=== PATIENT | female | born 1935 | race Caucasian/White ===

== ENCOUNTER → 2016-05-09 | Outpatient (CLI) | payer MEDICARE, OTHER ==
[2016-05-09 13:48] LABS: ARTERIAL BLOOD BASE EXCESS 9.3 mmol/L; ARTERIAL BLOOD O2 SATURATION 94.2 % (94-98)
== END ==
LOC: OD 13:08
PROVIDERS: ATTEND Physician Assistant Medical
DX: J44.9 Chronic obstructive pulmonary disease, unspecified (principal); I50.9 Heart failure, unspecified
CPT/HCPCS: 36600; 82803

== ENCOUNTER 2017-09-06 13:17 | Inpatient (IN) | payer MEDICARE, OTHER ==
[2017-09-06] MEDS ORDERED: CEFTRIAXONE 1 GM/D5W RTU 1 GM/50 ML RTUPB IV ONE (13:53)
[2017-09-06] MEDS ORDERED: IPRATROPIUM/ALBUTEROL 0.5-2.5 MG/3 ML AMPUL NEB ONE (13:53)
--- NOTE | 2017-09-06 14:00 | ER Document Report ---
ED Medical Screen (RME) - General Chief Complaint: Breathing Difficulty Stated Complaint: FEVER Time Seen by Provider: 09/06/17 13:45 Mode of Arrival: Ambulatory Information source: Patient Notes: 82-year-old female history of COPD presents with complaints of productive cough shortness breath fever that started this morning. Patient on oxygen only at nighttime I have greeted and performed a rapid initial assessment of this patient. A comprehensive ED assessment and evaluation of the patient, analysis of test results and completion of the medical decision making process will be conducted by additional ED providers. PHYSICAL EXAMINATION: GENERAL: shortness of breath HEAD: Atraumatic, normocephalic. EYES: Pupils equal round extraocular movements intact, conjunctiva are normal. ENT: Nares patent NECK: Normal range of motion LUNGS: coarse rhonchi Musculoskeletal: Normal range of motion NEUROLOGICAL: Normal speech, normal gait. PSYCH: Normal mood, normal affect. SKIN: Warm, Dry, normal turgor, no rashes or lesions noted. TRAVEL OUTSIDE OF THE [place] IN LAST 30 DAYS: No - Related Data Allergies/Adverse Reactions: codeine Adverse Reaction (Verified 09/06/17 13:19) n/v Past Medical History - Social History Chew tobacco use (# tins/day): No Frequency of alcohol use: Rare Drug Abuse: None Pulmonary Medical History: Reports: Hx COPD Neurological Medical History: Denies: Hx Seizures Renal/ Medical History: Denies: Hx Peritoneal Dialysis GI Medical History: Denies: Hx Cirrhosis, Hx Hepatitis Infectious Medical History: Denies: Hx Hepatitis Past Surgical History: Reports: Other - Bilateral Laser eye surgery Physical Exam - Vital signs Vitals: Temp Pulse Resp BP Pulse Ox 98.5 F 107 H 16 113/88 H 83 L 09/06/17 13:35 09/06/17 13:35 09/06/17 13:35 09/06/17 13:35 09/06/17 13:35 Course - Vital Signs Vital signs: Temp Pulse Resp BP Pulse Ox 98.5 F 107 H 16 113/88 H 83 L 09/06/17 13:35 09/06/17 13:35 09/06/17 13:35 09/06/17 13:35 09/06/17 13:35
--- NOTE | 2017-09-06 14:06 | ER Document Report ---
ED Respiratory Problem - General Chief Complaint: Breathing Difficulty Stated Complaint: FEVER Time Seen by Provider: 09/06/17 13:45 Mode of Arrival: Ambulatory Notes: The patient is an 82-year-old female, past medical history COPD (on home nighttime O2), presents with increasing shortness of breath, productive cough and fever up to 101. She had a family member was diagnosed with walking pneumonia. Her oxygen on arrival to the ER is 83% and she does not usually wear oxygen during the day. She denies chest pain, leg swelling, hemoptysis, nausea, vomiting, back pain or recent travel. TRAVEL OUTSIDE OF THE [place] IN LAST 30 DAYS: No - Related Data Allergies/Adverse Reactions: codeine Adverse Reaction (Verified 09/06/17 13:19) n/v Past Medical History - General Information source: Patient - Social History Smoking Status: Former Smoker Chew tobacco use (# tins/day): No Frequency of alcohol use: Rare Drug Abuse: None Family History: Reviewed & Not Pertinent Patient has suicidal ideation: No Patient has homicidal ideation: No Pulmonary Medical History: Reports: Hx COPD Neurological Medical History: Denies: Hx Seizures Renal/ Medical History: Denies: Hx Peritoneal Dialysis GI Medical History: Denies: Hx Cirrhosis, Hx Hepatitis Infectious Medical History: Denies: Hx Hepatitis Past Surgical History: Reports: Other - Bilateral Laser eye surgery Review of Systems - Review of Systems Notes: REVIEW OF SYSTEMS: CONSTITUTIONAL: +fevers, -chills EENT: -eye pain, -difficulty swallowing, -nasal congestion CARDIOVASCULAR: -chest pain, -syncope. RESPIRATORY: +cough, +SOB GASTROINTESTINAL: -abdominal pain, -nausea, -vomiting, -diarrhea GENITOURINARY: -dysuria, -hematuria MUSCULOSKELETAL: -back pain, -neck pain SKIN: -rash or skin lesions. HEMATOLOGIC: -easy bruising or bleeding. LYMPHATIC: -swollen, enlarged glands. NEUROLOGICAL: -altered mental status or loss of consciousness, -headache, - neurologic symptoms PSYCHIATRIC: -anxiety, -depression. ALL OTHER SYSTEMS REVIEWED AND NEGATIVE. Physical Exam - Vital signs Vitals: Temp Pulse Resp BP Pulse Ox 98.5 F 107 H 16 113/88 H 83 L 09/06/17 13:35 09/06/17 13:35 09/06/17 13:35 09/06/17 13:35 09/06/17 13:35 - Notes Notes: PHYSICAL EXAMINATION: GENERAL: No acute respiratory distress. HEAD: Atraumatic, normocephalic. EYES: Pupils equal round and reactive to light, extraocular movements intact, sclera anicteric, conjunctiva are normal. ENT: nares patent, oropharynx clear without exudates. Moist mucous membranes. NECK: Normal range of motion, supple without lymphadenopathy LUNGS: Diffuse wheezing, crackles in left lower lung. HEART: Regular rate and rhythm without murmurs ABDOMEN: Soft, nontender, normoactive bowel sounds. No guarding, no rebound. No masses appreciated. EXTREMITIES: Normal range of motion, no pitting or edema. No cyanosis. NEUROLOGICAL: Cranial nerves grossly intact. Normal speech, normal gait. Normal sensory and motor exams. PSYCH: Normal mood, normal affect. SKIN: Warm, Dry, normal turgor, no rashes or lesions noted. Course - Re-evaluation Re-evalutation: Patient with fever at home to 101, leukocytosis, productive cough, hypoxia to 83 % on room air and crackles in left lower lungs. Pt's oxygenation improves to 97 % on 3L nasal cannula. Radiology read chest x-ray as no acute processes, but clinically, she has a LLL pneumonia. Pt also with sepsis with a leukocytosis, tachycardia and fever. Will treat her for CAP. Pt also has hypokalemia and this was repleted in the emergency room. Patient with elevated LFTs, but she has no right upper quadrant tenderness or pain. US does not reveal any acute abnormalities. Her PMD is in [place]. Spoke to patient and said that patient should be admitted due to her age, comorbidities shortness of breath. 09/06/17 16:[address] Carter (Hospitalist) and he has accepted the patient as Inpatient to [facility]. - Vital Signs Vital signs: Temp Pulse Resp BP Pulse Ox 98.5 F 107 H 16 113/88 H 83 L 09/06/17 13:35 09/06/17 13:35 09/06/17 13:35 09/06/17 13:35 09/06/17 13:35 - Laboratory Result Diagrams: 09/06/17 14:15 09/06/17 14:15 Laboratory results interpreted by me: 09/06/17 09/06/17 14:15 14:15 WBC 15.3 H Seg Neutrophils % 80.7 H Lymphocytes % 8.9 L Absolute Neutrophils 12.3 H Potassium 3.1 L Carbon Dioxide 31 H Est GFR (Non-Af Amer) 58 L Total Bilirubin 1.5 H Direct Bilirubin 0.7 H AST 168 H ALT 104 H Alkaline Phosphatase 141 H - Diagnostic Test Radiology reviewed: Image reviewed, Reports reviewed Radiology results interpreted by me: CXR: NAD, chronic lung changes - EKG Interpretation by Me EKG shows normal: Sinus rhythm, [place], Intervals, QRS Complexes, ST-T Waves Rate: Normal When compared to previous EKG there are: No significant change Discharge - Discharge Clinical Impression: Hypoxia, Hypokalemia, Elevated LFTs Pneumonia Qualifiers: Pneumonia type: due to unspecified organism Laterality: left Lung location: lower lobe of lung Qualified Code(s): J18.1 - Lobar pneumonia, unspecified organism Sepsis Qualifiers: Sepsis type: sepsis due to unspecified organism Qualified Code(s): A41.9 - Sepsis, unspecified organism Condition: Stable Disposition: ADMITTED INPATIENT Admitting Provider: [place] Hospitalist [facility] Unit Admitted: Telemetry
[2017-09-06 14:28] LABS: ABSOLUTE BASOPHILS # (AUTO) 0.1 10^3/uL (0.0-0.2); ABSOLUTE EOSINOPHILS # (AUTO) 0.1 10^3/uL (0.0-0.6); ABSOLUTE LYMPHOCYTES (AUTO) 1.4 10^3/uL (0.5-4.7); ABSOLUTE MONOCYTES (AUTO) 1.4 10^3/uL (0.1-1.4); ABSOLUTE NEUT (AUTO) 12.3 10^3/uL (1.7-8.2); BASOPHILS % (AUTO) 0.6 % (0-2); EOSINOPHILS % (AUTO) 0.4 % (0-6); HEMOGLOBIN 12.8 g/dL (12.0-15.5); LYMPHOCYTES % (AUTO) 8.9 % (13-45); MEAN CORPUSCULAR HGB CONC 33.7 g/dL (32.0-36.0); MEAN CORPUSCULAR VOLUME 92 fl (80-97); MONOCYTES % (AUTO) 9.4 % (3-13); PLATELET COUNT 417 10^3/uL (150-450); RED BLOOD COUNT 4.13 10^6/uL (3.72-5.28); SEGMENTED NEUTROPHILS % (AUTO) 80.7 % (42-78); TOTAL CELLS COUNTED % (AUTO) 100 %; WHITE BLOOD COUNT 15.3 10^3/uL (4.0-10.5)
[2017-09-06 14:29] LABS: VENOUS BLOOD BASE EXCESS 5.5 mmol/L; VENOUS BLOOD HCO3 31.2 mmol/L (20-32); VENOUS BLOOD PCO2 49.5 mmHg (35-63); VENOUS BLOOD PH 7.42 (7.30-7.42)
[2017-09-06 14:40] LABS: INTERNATIONAL RATION (INR) 1.02; PROTHROMBIN TIME 13.9 SEC (11.4-15.4)
--- NOTE | 2017-09-06 14:42 | RADIOLOGY REPORT (SQ) ---
EXAM DESCRIPTION: CHEST SINGLE VIEW COMPLETED DATE/TIME: 09/06/2017 2:25 pm REASON FOR STUDY: sob, fever, copd COMPARISON: 03/13/2016 EXAM PARAMETERS: NUMBER OF VIEWS: One view. TECHNIQUE: Single frontal radiographic view of the chest acquired. RADIATION DOSE: NA LIMITATIONS: None. FINDINGS: LUNGS AND PLEURA: Hyperexpansion of the lungs. No infiltrate or effusion. No mass. MEDIASTINUM AND HILAR STRUCTURES: No masses. Contour normal. HEART AND VASCULAR STRUCTURES: Heart normal in size. Normal vasculature. BONES: No acute findings. HARDWARE: None in the chest. OTHER: No other significant finding. IMPRESSION: Chronic lung changes with no acute cardiopulmonary disease. TECHNICAL DOCUMENTATION: JOB ID: [id number] [employer]- All Rights Reserved Reading location - IP/workstation name: [email or web address]
[2017-09-06 14:47] LABS: ALANINE AMINOTRANSFERASE 104 U/L (9-52); ALBUMIN 4.2 g/dL (3.5-5.0); ALKALINE PHOSPHATASE 141 U/L (38-126); ANION GAP 11 (5-19); ASPARTATE AMINO TRANSFERASE 168 U/L (14-36); BILIRUBIN,DIRECT 0.7 mg/dL (0.0-0.4); BILIRUBIN,TOTAL 1.5 mg/dL (0.2-1.3); BLOOD UREA NITROGEN 18 mg/dL (7-20); CALCIUM 9.1 mg/dL (8.4-10.2); CARBON DIOXIDE 31 mmol/L (22-30); CHLORIDE 100 mmol/L (98-107); GLUCOSE 106 mg/dL (75-110); POTASSIUM 3.1 mmol/L (3.6-5.0); SODIUM 142.2 mmol/L (137-145); TOTAL PROTEIN 8.2 g/dL (6.3-8.2)
[2017-09-06] MEDS ORDERED: POTASSIUM CHLORIDE 10 MEQ CAPSULE.ER PO ONE (14:50)
[2017-09-06] MEDS ORDERED: AZITHROMYCIN INJ 500 MG VIAL IV ONE (15:02)
--- NOTE | 2017-09-06 16:01 | EKG REPORT ---
SEVERITY:- ABNORMAL ECG - SINUS TACHYCARDIA ATRIAL PREMATURE COMPLEX NONSPECIFIC REPOL ABNORMALITY, DIFFUSE LEADS : Confirmed by: Tala Connors 06-Sep-2017 16:01:27
--- NOTE | 2017-09-06 16:03 | RADIOLOGY REPORT (SQ) ---
EXAM DESCRIPTION: U/S ABDOMEN LIMITED W/O DOP COMPLETED DATE/TIME: 09/06/2017 3:43 pm REASON FOR STUDY: elevated LFTs COMPARISON: None. TECHNIQUE: Dynamic and static grayscale images acquired of the right upper quadrant and recorded on PACS. Additional selected color Doppler and spectral images recorded. LIMITATIONS: Study limited due to acoustical interference from fat or from air in the bowel. FINDINGS: PANCREAS: Obscured. LIVER: No masses. Echotexture normal. LIVER VASCULATURE: Normal directional flow of the main portal vein and hepatic veins. GALLBLADDER: No stones. Normal wall thickness. No pericholecystic fluid. ULTRASOUND-DETECTED CORBIN'S SIGN: Negative. INTRAHEPATIC DUCTS AND COMMON DUCT: CBD and intrahepatic ducts normal caliber. No filling defects. INFERIOR VENA CAVA: Normal flow. AORTA: Poorly visualized. Distal aorta obscured. RIGHT KIDNEY: Normal size. Normal echogenicity. No solid or suspicious masses. No hydronephrosis. No calcifications. PERITONEAL CAVITY AND RIGHT PLEURAL SPACE: No ascites or effusions. OTHER: No other significant finding. IMPRESSION: NORMAL RIGHT UPPER QUADRANT PANCREAS AND ABDOMINAL AORTA OBSCURED BY BOWEL GAS. TECHNICAL DOCUMENTATION: JOB ID: [id number] [employer]- All Rights Reserved Reading location - IP/workstation name: [email or web address]
--- NOTE | 2017-09-06 17:18 | PDOC H&P ---
History of Present Illness Admission Date/PCP: 09/06/17 16:54 Patient complains of: Fever, cough, shortness of breath History of Present Illness: SILVINA SULLIVAN is a 82 year old female is here from [place] visiting family and began to have a nonproductive cough yesterday. She woke up this morning and said she felt like she had a fever and was more short of breath. She has chronic hypoxemic respiratory failure and COPD and says she has been taking all of her medications and just uses oxygen at night. Her granddaughter said she had "walking pneumonia" and thinks she gave it to the patient. She was brought here where she was found to have a leukocytosis and a fever as well as evidence of some transaminitis. Abdominal ultrasound the right upper quadrant was negative for any acute pathology. She was admitted for IV antibiotics and further evaluation. Past Medical History Cardiac Medical History: Reports: Other - Carotid artery stenosis, particularly on the right according to the patient Pulmonary Medical History: Reports: Chronic Obstructive Pulmonary Disease (COPD) Neurological Medical History: Denies: Seizures GI Medical History: Denies: Cirrhosis, Hepatitis Past Surgical History Past Surgical History: Reports: Other - Bilateral Laser eye surgery Social History Information Source: Patient, Relative Lives with: Alone Smoking Status: Former Smoker Frequency of Alcohol Use: Social Drugs: None Past Social History Note: Granddaughter says she sits around watching TV most of the day and is not very active which is why she thinks she does not need to use oxygen during the day Family History Family History: Reviewed & Not Pertinent Parental Family History Reviewed: No - Noncontributory Children Family History Reviewed: No - Noncontributory Sibling(s) Family History Reviewed.: No - Noncontributory Medication/Allergy Home Medications: Mometasone/Formoterol [Dulera 200 Mcg/5 Mcg Inhaler] 2 puff IH BID 03/02/16 Tiotropium [place] [Spiriva Handihaler 18 mcg/dose (30 Dose)] 1 cap IH DAILY Acetaminophen [Tylenol 325 mg Tablet] 650 mg PO Q4HP PRN tablet 03/14/16 Albuterol Sulfate [Ventolin 0.083% Neb 2.5 mg/3 mL Ampul] 2.5 mg NEB RTQ4HP PRN vial.neb 03/14/16 Atorvastatin Calcium [Lipitor 20 mg Tablet] 20 mg PO QHS tablet 03/14/16 Cefpodoxime Proxetil [Vantin 200 mg Tablet] 1 tab PO Q12 #14 tab 03/14/16 Clopidogrel Bisulfate [Plavix 75 mg Tablet] 75 mg PO DAILY tablet 03/14/16 Docusate Sodium [Colace 100 mg Capsule] 100 mg PO BID capsule 03/14/16 Famotidine [Pepcid 20 mg Tablet] 20 mg PO Q12 tablet 03/14/16 Furosemide [Lasix 40 mg Tablet] 40 mg PO DAILY #3 tablet 03/14/16 Ipratropium/Albuterol Sulfate [Duoneb 3 ml Ampul] 3 ml NEB [id number] vial.neb Mag Hydrox/Al Hydrox/Simeth [Maalox Plus Susp 30 Udcup] 30 ml PO Q6HP PRN udc 03/14/16 Magnesium Hydroxide [Milk of Magnesia 30 ml Udcup] 30 ml PO Q48HP PRN udc 03/14 Metoprolol Succinate [Toprol Xl 25 mg Tab.sr] 25 mg PO DAILY tab.sr.24h Nicotine [Nicoderm 21 mg/24 Hr Transderm Patch] 1 each TD DAILYP PRN patch.td24 03/14/16 Polyethylene Glycol 3350 [Miralax Powder 17 gm/Packet] 17 gm PO DAILY powd.pack 03/14/16 Potassium Chloride [Klor-Con 10 Meq Tablet.sa] 20 meq PO DAILY #3 tablet.sa Prednisone [Deltasone 10 mg Tablet] 10 mg PO DAILY #3 tablet 03/14/16 Pyridoxine HCl [Vitamin B-6 Tablet 50 mg] 25 mg PO DAILY tablet 03/14/16 Allergies/Adverse Reactions: codeine Adverse Reaction (Verified 09/06/17 13:19) n/v Review of Systems Review of Systems: 10 point review of systems was conducted with the patient was negative except as noted in the HPI Physical Exam Vital Signs: Temp Pulse Resp BP Pulse Ox 98.5 F 107 H 29 H 112/57 L 96 09/06/17 13:35 09/06/17 13:35 09/06/17 17:00 09/06/17 15:16 09/06/17 17:00 General appearance: PRESENT: no acute distress, cooperative, disheveled, well- developed Head exam: PRESENT: atraumatic, normocephalic Eye exam: PRESENT: conjunctiva pink, EOMI, PERRLA. ABSENT: scleral icterus Ear exam: PRESENT: normal external ear exam Mouth exam: PRESENT: dry mucosa, neck supple Throat exam: ABSENT: post pharyngeal erythema, tonsillar erythema, tonsillar exudate, tonsillogmegaly Neck exam: PRESENT: full ROM. ABSENT: carotid bruit, JVD, lymphadenopathy, tenderness, thyromegaly Respiratory exam: PRESENT: decreased breath sounds, rhonchi - I did not hear anything peripherally, but she sounded like she had some central rhonchi which are most likely bronchial. ABSENT: rales, wheezes Cardiovascular exam: PRESENT: RRR. ABSENT: diastolic murmur, rubs, systolic murmur Pulses: PRESENT: normal carotid pulses, normal radial pulses, normal femoral pulses Vascular exam: PRESENT: normal capillary refill GI/Abdominal exam: PRESENT: normal bowel sounds, soft. ABSENT: distended, guarding, mass, organolmegaly, rebound, tenderness Rectal exam: PRESENT: deferred Extremities exam: PRESENT: full ROM, other - She has evidence of muscle wasting in her legs. ABSENT: calf tenderness, clubbing, pedal edema Neurological exam: PRESENT: alert, awake, oriented to person, oriented to place , oriented to time, CN II-XII grossly intact Psychiatric exam: PRESENT: appropriate affect, normal mood Skin exam: PRESENT: dry, warm - Skin is very dry and flaky, especially on her trunk Results Laboratory Results: Reviewed Impressions: Chest X-Ray 09/06/17 13:53 IMPRESSION: Chronic lung changes with no acute cardiopulmonary disease. Abdomen Ultrasound 09/06/17 14:49 IMPRESSION: NORMAL RIGHT UPPER QUADRANT PANCREAS AND ABDOMINAL AORTA OBSCURED BY BOWEL GAS. Assessment & Plan - Diagnosis (1) Sepsis Qualifiers: Sepsis type: sepsis due to unspecified organism Qualified Code(s): A41.9 - Sepsis, unspecified organism Is this a current diagnosis for this admission?: Yes Plan: IV antibiotics and hemodynamic monitoring. Will transition to oral antibiotics as soon as possible. (2) Community acquired pneumonia Qualifiers: Lung location: unspecified part of lung Is this a current diagnosis for this admission?: Yes Plan: I do not hear anything peripherally but this may be more likely to be a bronchitis. We will treat her with antibiotics just the same. Blood cultures are pending. (3) Chronic hypoxemic respiratory failure Is this a current diagnosis for this admission?: Yes Plan: She is on 4 L at night and she sits around during the day and does not move and so I suspect when she is active or under metabolic stress she gets hypoxemic. She says that she also uses oxygen some during the day. I think from an oxygenation standpoint she is probably at her baseline. We will continue oxygen at night we will give it to her as needed during the day. (4) COPD (chronic obstructive pulmonary disease) Qualifiers: COPD type: unspecified COPD Qualified Code(s): J44.9 - Chronic obstructive pulmonary disease, unspecified Is this a current diagnosis for this admission?: Yes Plan: We will continue her Spiriva and Symbicort - Time Time Spent: 50 to 70 Minutes Medications reviewed and adjusted accordingly: Yes Anticipated discharge: Home
[2017-09-06] MEDS: POTASSI CL 20 MEQ/50 ML RIDER 20 MEQ/50 ML RTUPB IV SCH ×2 (17:38→19:51)
[2017-09-06] MEDS ORDERED: ENOXAPARIN SODIUM INJ 40 MG/0.4 ML DISP.SYRIN SUBCUT ONE (18:30)
[2017-09-06] MEDS: ALBUTEROL SULFATE 0.083% NEB 2.5 MG/3 ML AMPUL NEB SCH (19:43)
[2017-09-06 19:48] LABS: APPEARANCE,URINE SLIGHTLY-CLOUDY; BILIRUBIN,URINE NEGATIVE (NEGATIVE); COLOR,URINE YELLOW; GLUCOSE, URINE NEGATIVE (NEGATIVE); KETONES,URINE NEGATIVE (NEGATIVE); LEUKOCYTE ESTERASE,URINE LARGE (NEGATIVE); NITRITE,URINE NEGATIVE (NEGATIVE); PROTEIN,URINE NEGATIVE (NEGATIVE); URINE SPECIFIC GRAVITY 1.012
[2017-09-06] MEDS: BUDESONIDE/FORMOTEROL 160-4.5 MCG 60 PUFF/6 GM MDI IH SCH (22:29)
[2017-09-06] MEDS: ACETAMINOPHEN 325 MG TABLET PO PRN (22:35)
[2017-09-06] MEDS: GUAIFENESIN 600 MG TABLET.SA PO SCH (22:35)
[2017-09-06] MEDS: FAMOTIDINE 20 MG TABLET PO SCH (22:35)
[2017-09-07] MEDS: ALBUTEROL SULFATE 0.083% NEB 2.5 MG/3 ML AMPUL NEB SCH ×4 (02:12→19:46)
[2017-09-07 06:38] LABS: HEMATOCRIT 34.5 % (36.0-47.0); HEMOGLOBIN 11.5 g/dL (12.0-15.5); MEAN CORPUSCULAR HGB CONC 33.3 g/dL (32.0-36.0); MEAN CORPUSCULAR VOLUME 93 fl (80-97); PLATELET COUNT 356 10^3/uL (150-450); RED BLOOD COUNT 3.71 10^6/uL (3.72-5.28); WHITE BLOOD COUNT 14.1 10^3/uL (4.0-10.5)
[2017-09-07 06:45] LABS: ANION GAP 11 (5-19); BLOOD UREA NITROGEN 16 mg/dL (7-20); CALCIUM 8.6 mg/dL (8.4-10.2); CARBON DIOXIDE 26 mmol/L (22-30); CHLORIDE 106 mmol/L (98-107); GLUCOSE 92 mg/dL (75-110); POTASSIUM 3.8 mmol/L (3.6-5.0); SODIUM 143.1 mmol/L (137-145)
[2017-09-07] MEDS: BUDESONIDE/FORMOTEROL 160-4.5 MCG 60 PUFF/6 GM MDI IH SCH ×2 (09:34→22:10)
[2017-09-07] MEDS: TIOTROPIUM BROMIDE DPI 5 CAP/KIT (18 MCG/CAP) IH SCH (09:35)
[2017-09-07] MEDS: PYRIDOXINE HCL 50 MG TABLET PO SCH (09:35)
[2017-09-07] MEDS: FAMOTIDINE 20 MG TABLET PO SCH ×2 (09:35→22:10)
[2017-09-07] MEDS: GUAIFENESIN 600 MG TABLET.SA PO SCH ×2 (09:35→22:09)
[2017-09-07] MEDS: CLOPIDOGREL BISULFATE 75 MG TABLET PO SCH (09:35)
[2017-09-07] MEDS: METOPROLOL SUCCINATE 25 MG TAB.SR.24H PO SCH (09:36)
[2017-09-07] MEDS: ENOXAPARIN SODIUM INJ 40 MG/0.4 ML DISP.SYRIN SUBCUT SCH (09:37)
[2017-09-07] MEDS ORDERED: CEFTRIAXONE 1 GM/D5W RTU 50 ML IV SCH (10:00)
[2017-09-07] MEDS: ACETAMINOPHEN 325 MG TABLET PO PRN (11:40)
[2017-09-07] MEDS ORDERED: BENZONATATE 100 MG CAPSULE PO PRN (14:04)
[2017-09-07] MEDS: CEFTRIAXONE SODIUM 1,000 MG in DEXTROSE 5%-WATER 50 ML IV SCH (14:40)
[2017-09-07] MEDS: IBUPROFEN 600 MG TABLET PO PRN ×2 (14:41→22:10)
--- NOTE | 2017-09-07 15:18 | PDOC PROGRESS REPORT ---
Subjective Progress Note for:: 09/07/17 Subjective:: She has been afebrile overnight. She was out for a walk in the hallway and feels like she pulled a muscle in her back. She does think her breathing feels a little bit worse today. She does not have any chest pain. Reason For Visit: PNEUMONIA,SEPSIS,CHRONIC HYPOXEMIC RESPIRATORY Physical Exam Vital Signs: Temp Pulse Resp BP Pulse Ox 98.3 F 93 20 110/48 L 94 09/07/17 12:55 09/07/17 14:00 09/07/17 13:19 09/07/17 12:55 09/07/17 13:19 Pulse Oximeter Continuous Start: 09/06/17 16: 59 Freq: RTQ4 Status: Complete Document 09/06/17 19:43 STI (Rec: 09/06/17 21:05 STI [id number]) Pulse Oximetry Assessment Oxygen Saturation (92-100) 96 Oxygen Flow Rate (L/min) 2.0 Oxygen Delivery Method Nasal Cannula Fraction of Inspired Oxygen (FIO2) 28 Equipment Usage Equipment Standby Continuous SpO2 Machine # ED MONITOR Intake & Output 09/06/17 09/07/17 09/08/17 06:59 06:59 06:59 Intake Total 118 Balance 118 Weight 56.9 kg General appearance: PRESENT: disheveled, mild distress - Having trouble getting comfortable in bed because of her back aching, well-developed, well-nourished Respiratory exam: PRESENT: clear to auscultation ryan, rhonchi - Some central rhonchi, likely bronchial. ABSENT: rales, wheezes Cardiovascular exam: PRESENT: RRR. ABSENT: diastolic murmur, rubs, systolic murmur GI/Abdominal exam: PRESENT: normal bowel sounds, soft. ABSENT: distended, guarding, mass, organolmegaly, rebound, tenderness Extremities exam: PRESENT: full ROM. ABSENT: calf tenderness, clubbing, pedal edema Neurological exam: PRESENT: alert, awake, oriented to person, oriented to place , oriented to time Results Laboratory Results: 09/07/17 05:24 09/07/17 05:24 09/06/17 09/07/17 09/07/17 19:00 05:24 05:24 WBC 14.1 H RBC 3.71 L Hgb 11.5 L Hct 34.5 L MCV 93 MCH 31.0 MCHC 33.3 RDW 14.0 Plt Count 356 Sodium 143.1 Potassium 3.8 Chloride 106 Carbon Dioxide 26 Anion Gap 11 BUN 16 Creatinine 0.77 Est GFR ( Amer) > 60 Est GFR (Non-Af Amer) > 60 Glucose 92 Calcium 8.6 Urine Color YELLOW Urine Appearance SLIGHTLY-CLOUDY Urine pH 5.0 Ur Specific Leslie 1.012 Urine Protein NEGATIVE Urine Glucose (UA) NEGATIVE Urine Ketones NEGATIVE Urine Blood NEGATIVE Urine Nitrite NEGATIVE Ur Leukocyte Esterase LARGE H Urine WBC (Auto) 19 Urine RBC (Auto) 1 Impressions: Chest X-Ray 09/06/17 13:53 IMPRESSION: Chronic lung changes with no acute cardiopulmonary disease. Abdomen Ultrasound 09/06/17 14:49 IMPRESSION: NORMAL RIGHT UPPER QUADRANT PANCREAS AND ABDOMINAL AORTA OBSCURED BY BOWEL GAS. Assessment & Plan - Diagnosis (1) Sepsis Qualifiers: Sepsis type: sepsis due to unspecified organism Qualified Code(s): A41.9 - Sepsis, unspecified organism Is this a current diagnosis for this admission?: Yes Plan: Improved, she is afebrile, and her white blood cell count is coming down. Continue IV antibiotics for now. Cultures are pending. (2) Community acquired pneumonia Qualifiers: Lung location: unspecified part of lung Is this a current diagnosis for this admission?: Yes Plan: Currently Rocephin and azithromycin. Cultures are pending. (3) Chronic hypoxemic respiratory failure Is this a current diagnosis for this admission?: Yes Plan: She is on 4 L at night and she sits around during the day and does not move and so I suspect when she is active or under metabolic stress she gets hypoxemic. She says that she also uses oxygen some during the day. I think from an oxygenation standpoint she is probably at her baseline. We will continue oxygen at night we will give it to her as needed during the day. (4) COPD (chronic obstructive pulmonary disease) Qualifiers: COPD type: unspecified COPD Qualified Code(s): J44.9 - Chronic obstructive pulmonary disease, unspecified Is this a current diagnosis for this admission?: Yes Plan: We will continue her Spiriva and Symbicort - Time Time Spent with patient: 25-34 minutes Medications reviewed and adjusted accordingly: Yes
[2017-09-07] MEDS: AZITHROMYCIN 500 MG in DEXTROSE 5%-WATER 250 ML IV SCH (17:08)
[2017-09-08] MEDS: ALBUTEROL SULFATE 0.083% NEB 2.5 MG/3 ML AMPUL NEB SCH ×4 (01:02→19:45)
[2017-09-08 04:49] LABS: HEMATOCRIT 31.9 % (36.0-47.0); HEMOGLOBIN 10.9 g/dL (12.0-15.5); MEAN CORPUSCULAR HEMOGLOBIN 31.3 pg (27.0-33.4); MEAN CORPUSCULAR HGB CONC 34.1 g/dL (32.0-36.0); MEAN CORPUSCULAR VOLUME 92 fl (80-97); PLATELET COUNT 326 10^3/uL (150-450); RED BLOOD COUNT 3.47 10^6/uL (3.72-5.28); RED CELL DISTRIBUTION WIDTH 14.2 % (11.5-14.0)
[2017-09-08 05:20] LABS: ANION GAP 11 (5-19); BLOOD UREA NITROGEN 13 mg/dL (7-20); CALCIUM 9.1 mg/dL (8.4-10.2); CARBON DIOXIDE 27 mmol/L (22-30); CHLORIDE 106 mmol/L (98-107); GLUCOSE 85 mg/dL (75-110); POTASSIUM 3.8 mmol/L (3.6-5.0)
[2017-09-08] MEDS: ENOXAPARIN SODIUM INJ 40 MG/0.4 ML DISP.SYRIN SUBCUT SCH (09:33)
[2017-09-08] MEDS: GUAIFENESIN 600 MG TABLET.SA PO SCH ×2 (09:37→21:39)
[2017-09-08] MEDS: CLOPIDOGREL BISULFATE 75 MG TABLET PO SCH (09:37)
[2017-09-08] MEDS: PYRIDOXINE HCL 50 MG TABLET PO SCH (09:38)
[2017-09-08] MEDS: METOPROLOL SUCCINATE 25 MG TAB.SR.24H PO SCH (09:38)
[2017-09-08] MEDS: BUDESONIDE/FORMOTEROL 160-4.5 MCG 60 PUFF/6 GM MDI IH SCH ×2 (09:38→21:39)
[2017-09-08] MEDS: FAMOTIDINE 20 MG TABLET PO SCH ×2 (09:38→21:39)
[2017-09-08] MEDS: TIOTROPIUM BROMIDE DPI 5 CAP/KIT (18 MCG/CAP) IH SCH (09:39)
--- NOTE | 2017-09-08 11:29 | PDOC PROGRESS REPORT ---
Subjective Progress Note for:: 09/08/17 Subjective:: Patient was admitted with pneumonia and difficulty breathing. It appears she has been feeling better since admission. She states that she has been able to ambulate with no dyspnea. She however is noted to be still somewhat hypoxemic with oxygen saturation of about 90% with oxygen supplementation. She has remained afebrile and her white count is improving. Reason For Visit: PNEUMONIA,SEPSIS,CHRONIC HYPOXEMIC RESPIRATORY Physical Exam Vital Signs: Temp Pulse Resp BP Pulse Ox 98.2 F 85 20 121/50 L 91 L 09/08/17 08:25 09/08/17 08:25 09/08/17 08:25 09/08/17 08:25 09/08/17 08:25 Pulse Oximeter Continuous Start: 09/06/17 16: 59 Freq: RTQ4 Status: Complete Document 09/06/17 19:43 STI (Rec: 09/06/17 21:05 STI [id number]) Pulse Oximetry Assessment Oxygen Saturation (92-100) 96 Oxygen Flow Rate (L/min) 2.0 Oxygen Delivery Method Nasal Cannula Fraction of Inspired Oxygen (FIO2) 28 Equipment Usage Equipment Standby Continuous SpO2 Machine # ED MONITOR Intake & Output 09/07/17 09/08/17 09/09/17 06:59 06:59 06:59 Intake Total 927 Output Total 3 Balance 924 Weight 56.9 kg 57.1 kg General appearance: PRESENT: no acute distress, cooperative, thin - Elderly Respiratory exam: PRESENT: decreased breath sounds Cardiovascular exam: PRESENT: RRR. ABSENT: diastolic murmur, rubs, systolic murmur GI/Abdominal exam: PRESENT: normal bowel sounds, soft. ABSENT: distended, guarding, mass, organolmegaly, rebound, tenderness Rectal exam: PRESENT: deferred Neurological exam: PRESENT: alert, awake, oriented to person, oriented to place , oriented to time, oriented to situation, CN II-XII grossly intact. ABSENT: motor sensory deficit Results Laboratory Results: 09/08/17 04:14 09/08/17 04:14 09/08/17 09/08/17 04:14 04:14 WBC 11.0 H RBC 3.47 L Hgb 10.9 L Hct 31.9 L MCV 92 MCH 31.3 MCHC 34.1 RDW 14.2 H Plt Count 326 Sodium 144.0 Potassium 3.8 Chloride 106 Carbon Dioxide 27 Anion Gap 11 BUN 13 Creatinine 0.79 Est GFR ( Amer) > 60 Est GFR (Non-Af Amer) > 60 Glucose 85 Calcium 9.1 09/06/17 19:00 Clean Catch Midstream Urine Culture - Final NO GROWTH 2 DAYS Impressions: Chest X-Ray 09/06/17 13:53 IMPRESSION: Chronic lung changes with no acute cardiopulmonary disease. Abdomen Ultrasound 09/06/17 14:49 IMPRESSION: NORMAL RIGHT UPPER QUADRANT PANCREAS AND ABDOMINAL AORTA OBSCURED BY BOWEL GAS. Assessment & Plan - Time Time Spent with patient: 15-24 minutes Medications reviewed and adjusted accordingly: Yes Anticipated discharge: Home Within: within 24 hours - Inpatient Certification Based on my medical assessment, after consideration of the patient's comorbidities, presenting symptoms, or acuity I expect that the services needed warrant INPATIENT care.: Yes Medical Necessity: Need for IV Antibiotics - Plan Summary Plan Summary: Sepsis secondary to pneumonia. This has resolved cultures are negative. 2. Community-acquired pneumonia with patient currently on Rocephin and Zithromax. Will continue same and reevaluate in a.m. 3. Chronic hypoxemic respiratory failure patient is on nocturnal oxygen at home she will be encouraged to contact and continue with these 4. COPD currently on bronchodilators. She is on no oral systemic steroids and does not want one at this time. 5. Given this patient's age and a sepsis and the fact that she has been in hospital for less than 48 hours I think it is reasonable to watch overnight and make sure she is stable prior to discharging her home hopefully in a.m. 6. Anemia likely secondary to hemodilution. There is no evidence of acute blood loss 7. Hypokalemia replaced
[2017-09-08] MEDS: CEFTRIAXONE SODIUM 1,000 MG in DEXTROSE 5%-WATER 50 ML IV SCH (13:47)
[2017-09-08] MEDS: AZITHROMYCIN 500 MG in DEXTROSE 5%-WATER 250 ML IV SCH (17:07)
[2017-09-08] MEDS: IBUPROFEN 600 MG TABLET PO PRN (21:39)
[2017-09-09] MEDS: ALBUTEROL SULFATE 0.083% NEB 2.5 MG/3 ML AMPUL NEB SCH ×2 (01:39→07:50)
[2017-09-09 06:41] LABS: HEMATOCRIT 32.2 % (36.0-47.0); MEAN CORPUSCULAR HEMOGLOBIN 31.4 pg (27.0-33.4); MEAN CORPUSCULAR HGB CONC 34.3 g/dL (32.0-36.0); MEAN CORPUSCULAR VOLUME 92 fl (80-97); PLATELET COUNT 355 10^3/uL (150-450); RED BLOOD COUNT 3.51 10^6/uL (3.72-5.28); WHITE BLOOD COUNT 8.5 10^3/uL (4.0-10.5)
[2017-09-09 06:50] LABS: ANION GAP 10 (5-19); BLOOD UREA NITROGEN 11 mg/dL (7-20); CALCIUM 9.1 mg/dL (8.4-10.2); CARBON DIOXIDE 27 mmol/L (22-30); CHLORIDE 108 mmol/L (98-107); GLUCOSE 75 mg/dL (75-110); POTASSIUM 4.4 mmol/L (3.6-5.0); SODIUM 144.5 mmol/L (137-145)
[2017-09-09] MEDS: GUAIFENESIN 600 MG TABLET.SA PO SCH (09:35)
[2017-09-09] MEDS: METOPROLOL SUCCINATE 25 MG TAB.SR.24H PO SCH (09:37)
[2017-09-09] MEDS: FAMOTIDINE 20 MG TABLET PO SCH (09:37)
[2017-09-09] MEDS: CLOPIDOGREL BISULFATE 75 MG TABLET PO SCH (09:37)
[2017-09-09] MEDS: TIOTROPIUM BROMIDE DPI 5 CAP/KIT (18 MCG/CAP) IH SCH (09:38)
[2017-09-09] MEDS: BUDESONIDE/FORMOTEROL 160-4.5 MCG 60 PUFF/6 GM MDI IH SCH (09:38)
[2017-09-09] MEDS: PYRIDOXINE HCL 50 MG TABLET PO SCH (09:38)
[2017-09-09] MEDS: ENOXAPARIN SODIUM INJ 40 MG/0.4 ML DISP.SYRIN SUBCUT SCH (09:39)
[2017-09-09] MEDS ORDERED: AZITHROMYCIN 500 MG in DEXTROSE 5%-WATER 250 ML IV ONE (11:00)
[2017-09-09] MEDS ORDERED: CEFTRIAXONE SODIUM 1,000 MG in DEXTROSE 5%-WATER 50 ML IV ONE (11:00)
[2017-09-09 12:33] VITALS: BP 118/93
--- NOTE | 2017-09-09 12:38 | PDOC DISCHARGE SUMMARY ---
General - Admit/Disc Date/PCP Admission Date/Primary Care Provider: 09/06/17 16:54 Discharge Date: 09/09/17 - Discharge Diagnosis (1) Community acquired pneumonia Is this a current diagnosis for this admission?: Yes (2) Elevated LFTs Is this a current diagnosis for this admission?: Yes (4) Hypoxia Is this a current diagnosis for this admission?: Yes (5) Pneumonia Is this a current diagnosis for this admission?: Yes (6) Sepsis Is this a current diagnosis for this admission?: Yes (7) Acute and chronic respiratory failure with hypoxia Is this a current diagnosis for this admission?: Yes - Additional Information Resuscitation Status: Full Code Discharge Diet: Cardiac Discharge Activity: Activity As Tolerated Prescriptions: Benzonatate [Tessalon Perles 100 mg Capsule] 100 mg PO Q8HP PRN #20 capsule PRN Reason: Cough Azithromycin [Zithromax] 500 mg PO DAILY #6 tablet Cefuroxime Axetil [Ceftin 500 mg Tablet] 1 tab PO BID #14 tablet Home Medications: Budesonide/Formoterol Fumarate [Symbicort 160-4.5 Mcg Inhaler] 1 puff IH Q12 Clopidogrel Bisulfate [Plavix 75 mg Tablet] 75 mg PO DAILY 09/06/17 Furosemide [Lasix 20 mg Tablet] 20 mg PO DAILY 09/06/17 Ipratropium/Albuterol Sulfate [Iprat-Albut 0.5-3(2.5) mg/3 ml] 3 ml NEB Q6 09/06 Metoprolol Succinate [Toprol Xl 25 mg Tab.sr] 25 mg PO DAILY 09/06/17 Pyridoxine HCl (Vitamin B6) [Vitamin B-6] 25 mg PO DAILY 09/06/17 Tiotropium Edison [Spiriva Respimat] 1 puff IH DAILY 09/06/17 Azithromycin [Zithromax] 500 mg PO DAILY #6 tablet 09/09/17 Benzonatate [Tessalon Perles 100 mg Capsule] 100 mg PO Q8HP PRN #20 capsule Budesonide/Formoterol Fumarate [Symbicort HFA 160-4.5 mcg Inhaler 6 gm] 2 puff IH Q12 inhaler 09/09/17 Cefuroxime Axetil [Ceftin 500 mg Tablet] 1 tab PO BID #14 tablet 09/09/17 Famotidine [Pepcid 20 mg Tablet] 20 mg PO Q12 tablet 09/09/17 History of Present Illness Patient complains of: Patient was admitted with a nonproductive cough and fever History of Present Illness: SILVINA SULLIVAN is a 82 year old female admitted with a nonproductive cough and fever after being diagnosed with sepsis and community-acquired pneumonia. She did have an elevated white count on initial presentation Hospital Course Hospital Course: Patient was admitted with a nonproductive cough and fever after being diagnosed with sepsis and community-acquired pneumonia. She did have an elevated white count on initial presentation. Patient was started on intravenous antibiotics and she responded very well to this regimen. She has remained afebrile throughout her hospital course. She was found to be slightly hypoxemic ambulation however she does use home oxygen especially nocturnally and she has been advised to use home oxygen throughout the day as well. Initial white count was 15,000 and this is declined to 8.5 today. Transaminitis is likely due to acute infection and this should resolve with resolution of infection Patient has otherwise remained hemodynamically stable and her blood pressure which was initially low on presentation has stabilized. At this point it is felt that she can be discharged home and she can follow-up with her primary care physician when she gets back to [place] Physical Exam Vital Signs: Temp Pulse Resp BP Pulse Ox 98 F 92 16 118/93 H 91 L 09/09/17 12:32 09/09/17 12:32 09/09/17 12:32 09/09/17 12:32 09/09/17 12:32 Pulse Oximeter Continuous Start: 09/06/17 16: 59 Freq: RTQ4 Status: Complete Document 09/06/17 19:43 [facility] [email or web address]] (Rec: 09/06/17 21:05 [id number] Pulse Oximetry Assessment Oxygen Saturation (92-100) 96 Oxygen Flow Rate (L/min) 2.0 Oxygen Delivery Method Nasal Cannula Fraction of Inspired Oxygen (FIO2) 28 Equipment Usage Equipment Standby Continuous SpO2 Machine # ED MONITOR Intake & Output 09/08/17 09/09/17 09/10/17 06:59 06:59 06:59 Intake Total 927 1508 Output Total 3 Balance 924 1508 Weight 57.1 kg 58.2 kg General appearance: PRESENT: no acute distress, thin Head exam: PRESENT: atraumatic, normocephalic Eye exam: PRESENT: conjunctiva pink, EOMI, PERRLA. ABSENT: scleral icterus Ear exam: PRESENT: normal external ear exam Mouth exam: PRESENT: moist, tongue midline Neck exam: ABSENT: carotid bruit, JVD, lymphadenopathy, thyromegaly Respiratory exam: PRESENT: clear to auscultation ryan. ABSENT: rales, rhonchi, wheezes Cardiovascular exam: PRESENT: RRR. ABSENT: diastolic murmur, rubs, systolic murmur Pulses: PRESENT: normal dorsalis pedis pul Vascular exam: PRESENT: normal capillary refill GI/Abdominal exam: PRESENT: normal bowel sounds, soft. ABSENT: distended, guarding, mass, organolmegaly, rebound, tenderness Rectal exam: PRESENT: deferred Extremities exam: PRESENT: full ROM. ABSENT: calf tenderness, clubbing, pedal edema Neurological exam: PRESENT: alert, awake, oriented to person, oriented to place , oriented to time, oriented to situation, CN II-XII grossly intact. ABSENT: motor sensory deficit Psychiatric exam: PRESENT: appropriate affect, normal mood. ABSENT: homicidal ideation, suicidal ideation Skin exam: PRESENT: dry, intact, warm. ABSENT: cyanosis, rash Results Laboratory Results: 09/09/17 05:54 09/09/17 05:54 09/09/17 09/09/17 05:54 05:54 WBC 8.5 RBC 3.51 L Hgb 11.0 L Hct 32.2 L MCV 92 MCH 31.4 MCHC 34.3 RDW 14.0 Plt Count 355 Sodium 144.5 Potassium 4.4 Chloride 108 H Carbon Dioxide 27 Anion Gap 10 BUN 11 Creatinine 0.71 Est GFR ( Amer) > 60 Est GFR (Non-Af Amer) > 60 Glucose 75 Calcium 9.1 09/06/17 19:00 Clean Catch Midstream Urine Culture - Final NO GROWTH 2 DAYS Impressions: Chest X-Ray 09/06/17 13:53 IMPRESSION: Chronic lung changes with no acute cardiopulmonary disease. Abdomen Ultrasound 09/06/17 14:49 IMPRESSION: NORMAL RIGHT UPPER QUADRANT PANCREAS AND ABDOMINAL AORTA OBSCURED BY BOWEL GAS. Qualifiers - * PATIENT BEING DISCHARGED WITH ANY OF THE FOLLOWING DIAGNOSIS: No Plan Time Spent: Greater than 30 Minutes
== END 2017-09-09 13:03 | disposition home or self-care (01) | DRG 871 ==
LOC: ER 13:17 → EH 16:54 → 4N 20:30
PROVIDERS: ADMIT Family Medicine; ATTEND Family Medicine
DX: A41.9 Sepsis, unspecified organism (principal); J18.1 Lobar pneumonia, unspecified organism; J96.21 Acute and chronic respiratory failure with hypoxia; J44.9 Chronic obstructive pulmonary disease, unspecified; E87.6 Hypokalemia; D64.9 Anemia, unspecified; R74.0 Nonspecific elevation of levels of transaminase and lactic acid dehydrogenase [LDH]; Z87.891 Personal history of nicotine dependence; Z79.01 Long term (current) use of anticoagulants; Z79.51 Long term (current) use of inhaled steroids; Z79.52 Long term (current) use of systemic steroids; Z79.899 Other long term (current) drug therapy
CPT/HCPCS: 36415; 71045; 76705; 80048; 80053; 81001; 82803; 82962; 83605; 85025; 85027; 85610; 87040; 87086; 93005; 93010; 94640; 96365; 99285; J0456; J0696; J1650; J3480; J3490; J7060; J7620

== ENCOUNTER 2018-02-27 12:14 | Emergency (ER) | payer MEDICARE, OTHER ==
--- NOTE | 2018-02-27 12:29 | ER Document Report ---
ED Medical Screen (RME) - General Chief Complaint: Nose Bleed Stated Complaint: NOSE BLEED Time Seen by Provider: 02/27/18 12:26 Notes: 82 years old female with a history of previous nosebleed, on home oxygen for COPD. Presents today with episode of bleeding from the nostrils this morning x2. TRAVEL OUTSIDE OF THE [place] IN LAST 30 DAYS: No - Related Data Allergies/Adverse Reactions: codeine Adverse Reaction (Verified 09/06/17 13:19) n/v Past Medical History Pulmonary Medical History: Reports: Hx COPD Neurological Medical History: Denies: Hx Seizures Renal/ Medical History: Denies: Hx Peritoneal Dialysis GI Medical History: Denies: Hx Cirrhosis, Hx Hepatitis Psychiatric Medical History: Denies: Hx Depression Infectious Medical History: Denies: Hx Hepatitis Past Surgical History: Reports: Other - Bilateral Laser eye surgery Physical Exam - Vital signs Vitals: Temp Pulse Resp BP Pulse Ox 97.7 F 108 H 22 H 152/59 H 87 L 02/27/18 12:14 02/27/18 12:14 02/27/18 12:14 02/27/18 12:14 02/27/18 12:14 Course - Vital Signs Vital signs: Temp Pulse Resp BP Pulse Ox 97.7 F 108 H 22 H 152/59 H 87 L 02/27/18 12:14 02/27/18 12:14 02/27/18 12:14 02/27/18 12:14 02/27/18 12:14
[2018-02-27] MEDS ORDERED: THROMBIN (BOVINE) 5000 UNIT EPITAXIS KIT ONE (12:33)
[2018-02-27 13:09] LABS: ABSOLUTE BASOPHILS # (AUTO) 0.1 10^3/uL (0.0-0.2); ABSOLUTE EOSINOPHILS # (AUTO) 0.6 10^3/uL (0.0-0.6); ABSOLUTE LYMPHOCYTES (AUTO) 1.9 10^3/uL (0.5-4.7); ABSOLUTE MONOCYTES (AUTO) 0.8 10^3/uL (0.1-1.4); ABSOLUTE NEUT (AUTO) 6.5 10^3/uL (1.7-8.2); BASOPHILS % (AUTO) 1.2 % (0-2); EOSINOPHILS % (AUTO) 5.9 % (0-6); HEMATOCRIT 30.9 % (36.0-47.0); HEMOGLOBIN 10.3 g/dL (12.0-15.5); LYMPHOCYTES % (AUTO) 19.5 % (13-45); MEAN CORPUSCULAR HGB CONC 33.3 g/dL (32.0-36.0); MEAN CORPUSCULAR VOLUME 90 fl (80-97); PLATELET COUNT 510 10^3/uL (150-450); RED BLOOD COUNT 3.44 10^6/uL (3.72-5.28); RED CELL DISTRIBUTION WIDTH 15.6 % (11.5-14.0); SEGMENTED NEUTROPHILS % (AUTO) 65.4 % (42-78); TOTAL CELLS COUNTED % (AUTO) 100 %; WHITE BLOOD COUNT 9.9 10^3/uL (4.0-10.5)
[2018-02-27 13:22] LABS: INTERNATIONAL RATION (INR) 0.95; PROTHROMBIN TIME 13.1 SEC (11.4-15.4)
[2018-02-27 13:37] LABS: ANION GAP 9 (5-19); BLOOD UREA NITROGEN 18 mg/dL (7-20); CARBON DIOXIDE 31 mmol/L (22-30); CHLORIDE 104 mmol/L (98-107); GLUCOSE 106 mg/dL (75-110); POTASSIUM 3.4 mmol/L (3.6-5.0); SODIUM 143.7 mmol/L (137-145)
[2018-02-27 14:55] VITALS: BP 108/82
--- NOTE | 2018-02-27 14:56 | ER Document Report ---
ED ENT - General Chief Complaint: Nose Bleed Stated Complaint: NOSE BLEED Time Seen by Provider: 02/27/18 12:26 Mode of Arrival: Ambulatory Information source: Patient Notes: This is an 82-year-old female with a history of COPD (oxygen dependent with 2-1/ 2 L), CHF. Patient does have a history of nosebleeds in the past during the winter and presents today after nosebleed. Patient states she was having bleeding from the right nare. She bilaterally this morning and again this afternoon. She is on Plavix. Currently, the bleeding is stopped. TRAVEL OUTSIDE OF THE [place] IN LAST 30 DAYS: No - HPI Patient complains to provider of: Nose problem Onset: This morning Onset/Duration: Gradual Pain Level: Denies Location of pain: Nose Associated symptoms: None Similar symptoms previously: Yes Recently seen / treated by doctor: No - Related Data Allergies/Adverse Reactions: codeine Adverse Reaction (Verified 09/06/17 13:19) n/v Past Medical History - General Information source: Patient - Social History Smoking Status: Former Smoker Cigarette use (# per day): No Chew tobacco use (# tins/day): No Frequency of alcohol use: None Drug Abuse: None Lives with: Family Family History: Reviewed & Not Pertinent Patient has suicidal ideation: No Patient has homicidal ideation: No - Past Medical History Cardiac Medical History: Reports: Hx Congestive Heart Failure Pulmonary Medical History: Reports: Hx COPD EENT Medical History: Reports: Nose Neurological Medical History: Reports: Other - TIAs. Denies: Hx Seizures Renal/ Medical History: Denies: Hx Peritoneal Dialysis GI Medical History: Denies: Hx Cirrhosis, Hx Hepatitis Psychiatric Medical History: Denies: Hx Depression Infectious Medical History: Denies: Hx Hepatitis Past Surgical History: Reports: Hx Orthopedic Surgery, Other - Bilateral Laser eye surgery Review of Systems - Review of Systems Constitutional: denies: Chills, Fever EENT: See HPI Cardiovascular: No symptoms reported Respiratory: No symptoms reported Gastrointestinal: No symptoms reported Genitourinary: No symptoms reported Female Genitourinary: No symptoms reported Musculoskeletal: No symptoms reported Skin: No symptoms reported Hematologic/Lymphatic: No symptoms reported Neurological/Psychological: No symptoms reported Physical Exam - Vital signs Vitals: Temp Pulse Resp BP Pulse Ox 97.7 F 108 H 22 H 152/59 H 87 L 02/27/18 12:14 02/27/18 12:14 02/27/18 12:14 02/27/18 12:14 02/27/18 12:14 Notes: Physical exam: GENERAL: Patient is alert and oriented x3, no acute distress. She is not bleeding at the current time peer HEAD: Atraumatic, normocephalic. EYES: Pupils equal round and reactive to light, extraocular movements intact, sclera anicteric, conjunctiva are normal. ENT: Patient examined with the ENT light and nasal speculum: Right naris shows some irritation along the anterior ethmoid septum. There is no active bleeding. The left septum looks clear. She does have some irritation along the fascial wall on the left nare. There is no bleeding. Patient has upper dentures. There is no postnasal drip or postnasal bleeding per NECK: Normal range of motion, supple without obvious mass or JVD. LUNGS: Breath sounds clear to auscultation bilaterally and equal. No wheezes rales or rhonchi. HEART: Regular rate and rhythm without murmurs, rubs or gallops. ABDOMEN: Soft, normoactive bowel sounds. No tenderness to palpation. No guarding, no rebound. No masses appreciated. EXTREMITIES: Normal range of motion, no pitting or edema. No clubbing or cyanosis. NEUROLOGICAL: Cranial nerves II through XII grossly intact. Normal speech, moving all extremities. PSYCH: Normal mood, normal affect. SKIN: Warm, Dry, normal turgor, no rashes or lesions noted. Course - Re-evaluation Re-evalutation: Note: This is a patient who has COPD that is on nasal cannula oxygen and they do humidify the oxygen. However, her mucous membranes have been dry of late and she is having some nasal bleeding from the right nare. They are using lubrication at night to try and prevent this. They are using Afrin nasal spray. I will refer them to an ENT doctor. In the meantime, there is no need for packing at this time and there is nothing really to cauterize. There is no active bleeding. I did discuss with them that this is someone who I want to avoid packing given her COPD and need for nasal oxygen. So we will continue with the lubrication and the Afrin nasal spray. If she bleeds again, I have advised him to come back for cauterization. 02/28/18 0 - Vital Signs Vital signs: Temp Pulse Resp BP Pulse Ox 98.6 F 96 20 108/82 91 L 02/27/18 14:54 02/27/18 14:54 02/27/18 14:54 02/27/18 14:54 02/27/18 14:54 - Laboratory Result Diagrams: 02/27/18 13:00 02/27/18 13:00 Laboratory results interpreted by me: 02/27/18 02/27/18 13:00 13:00 RBC 3.44 L Hgb 10.3 L Hct 30.9 L RDW 15.6 H Plt Count 510 H Potassium 3.4 L Carbon Dioxide 31 H Discharge - Discharge Clinical Impression: Epistaxis epistaxis Condition: Stable Disposition: HOME, SELF-CARE Instructions: Nosebleed Instructions ([facility]) Additional Instructions: As discussed use the Afrin nasal spray twice daily. Continue with the Vaseline ointment I would hold the Plavix for 2 days Return to the emergency room for any further bleeding. Call the office of the ENT doctor tomorrow to see if they can see you tomorrow for a scope. Referrals: JAYASHREE SARMIENTO, DSP ENGINEER-C [Primary Care Provider] - Follow up as needed CRU[facility] CHILDRESS DO [ASSOCIATE] - 02/27/18 (This is the number for the ENT doctor. Give the office a call in the morning and tell them you are in the ER for nosebleed and the ER doctor wanted you seen soon.)
== END 2018-02-27 15:01 | disposition home or self-care (01) ==
LOC: ER 12:14
DX: R04.0 Epistaxis (principal); J44.9 Chronic obstructive pulmonary disease, unspecified; Z99.81 Dependence on supplemental oxygen; Z79.02 Long term (current) use of antithrombotics/antiplatelets; Z86.73 Personal history of transient ischemic attack (TIA), and cerebral infarction without residual deficits; Z87.891 Personal history of nicotine dependence
CPT/HCPCS: 36415; 80048; 85025; 85610; 99283